=== PATIENT | male | born 1990 | race Caucasian/White ===

== ENCOUNTER 2018-08-30 19:34 | Emergency (ER) | payer MEDICAID ==
[~2018-08-30] VITALS: Ht 185.4 cm; Wt 89.8 kg
[2018-08-30 19:37] VITALS: BP 137/84
--- NOTE | 2018-08-30 19:40 | NUR ---
PATIENT PRESENTS TO ED WITH C/O SUDDEN ONSET ANXIETY WHILE PLAYING VIDEO GAME X 1 HOUR AGO. PMH: ANXIETY, PT STATES, "I USUSALLY SMOKE WEED FOR IT, BUT I STOPPED SMOKING 4 DAYS AGO.". PT STATES EVERY TIME HE STOPS SMOKING, HE GETS ANXIETY. STATES HE VOMITED ONCE WHEN THE ANXIETY FIRST BEGAN; SKIN IS PINK/WARM/DRY; AAOX4 WITH EVEN AND STEADY GAIT; LUNGS CLEAR BL; HR EVEN AND REGULAR; PT DENIES ANY FEVER, CP, SOB, OR COUGH AT THIS TIME; PATIENT STATES PAIN OF 0/10 AT THIS TIME; VSS; PATIENT POSITIONED FOR COMFORT; HOB ELEVATED; BEDRAILS UP X2; BED DOWN. ER MD MADE AWARE OF PT STATUS.
--- NOTE | 2018-08-30 19:43 | NUR ---
PT TAKEN TO BED 12
[2018-08-30] MEDS ORDERED: LORazepam 2 MG/ML VIAL IM ONE (19:45)
[2018-08-30 20:20] VITALS: BP 131/83
--- NOTE | 2018-08-30 20:20 | NUR ---
Patient discharged with v/s stable. Written and verbal after care instructions given and explained. Patient alert, oriented and verbalized understanding of instructions. Ambulatory with steady gait. All questions addressed prior to discharge. ID band removed. Patient advised to follow up with PMD. Rx of ATIVAN 0.5MG given. Patient educated on indication of medication including possible reaction and side effects. Opportunity to ask questions provided and answered.
== END 2018-08-30 20:20 | disposition home or self-care (01) ==
LOC: MED 19:34
DX: F41.9 Anxiety disorder, unspecified (principal)
CPT/HCPCS: 96372; 99284; J2060